=== PATIENT | female | born 1945 | race Caucasian/White ===

== ENCOUNTER 2016-08-17 05:56 | Inpatient (IN) | payer OTHER, MEDICAID ==
[2016-08-15 12:35] LABS: Basophils # (auto) 0 uL; Basophils % (auto) 0.4 % (0.0-2.0); Eosinophils # (auto) 0.2 uL; Eosinophils % (auto) 2.1 % (0.0-7.0); Hemoglobin 12.3 g/dL (12.2-16.2); Lymphocytes # (auto) 1.4 uL; Mean Corpuscular Hemoglobin 29.2 pg (28.0-32.0); Mean Corpuscular Hgb Conc. 32.2 g/dL (32.0-36.0); Mean Corpuscular Volume 90.6 fL (80.0-100.0); Mean Platelet Volume 8.4 fL (7.4-10.4); Monocytes # (auto) 0.2 uL; Monocytes % (auto) 2.3 % (0.0-12.0); Neutrophils # (auto) 6.6 uL; Neutrophils % (auto) 78.2 % (37.0-80.0); Platelet Count (auto) 235 10^3/uL (140-450); Red Cell Distribution Width 14.7 % (11.6-16.0); White Blood Cell 8.4 10^3/uL (4.4-10.8)
[2016-08-15 12:48] LABS: Partial Thromboplastin Time 27.9 sec (22.64-33.71); Prothrombin Time 10.3 sec (9.37-12.3)
[2016-08-15 13:04] LABS: Potassium 4.6 mmol/L (3.5-5.1)
[2016-08-15 13:08] LABS: Albumin 3.3 g/dL (3.4-5.0); BUN/Creatinine Ratio 13.9; Calcium 8.6 mg/dL (8.5-10.1)
[2016-08-15 13:11] LABS: Bilirubin, Total 0.6 mg/dL (0.2-1.0); Total Protein 7.8 g/dL (6.4-8.2)
[~2016-08-17] VITALS: Ht 165.1 cm; Wt 81.4 kg
[~2016-08-17 05:56] MED LIST: ALPR1TAB2 PO; AMLO5TAB2 PO; CYCL1TAB18 PO; GLIP-115 PO; HYDR25TA4 PO; LEVO200T46 PO; LINA5TAB PO; LISI-646 PO; METH2.5T3 PO; PEN400T PO
[2016-08-17] MEDS ORDERED: BUPIVACAINE W/ EPINEPH 0.25% INJ 50ML MDV ONE (06:36)
[2016-08-17] MEDS ORDERED: BUPIVACAINE 0.25% INJ 50ML VIAL ONE (06:36)
[2016-08-17] MEDS ORDERED: GELATIN 1 SPONGE SIZE 100 TOP ONE (06:36)
[2016-08-17] MEDS ORDERED: LIDOCAINE W/ EPINEPHRINE 1 % INJ 30ML ONE (06:36)
[2016-08-17] MEDS ORDERED: GELATIN 1 SPONGE SIZE 50 TOP ONE (06:36)
[2016-08-17] MEDS ORDERED: POVIDONE IODINE 10 % TOPICAL OINT 30GM TOP ONE (06:36)
[2016-08-17] MEDS ORDERED: LIDOCAINE 1% HCL (LOCAL ANESTH.) INJ 20ML MDV ONE (06:36)
[2016-08-17] MEDS ORDERED: PROMETHAZINE HCL 25 MG RECT SUPP PR ONE (08:15)
[2016-08-17] MEDS ORDERED: ONDANSETRON HCL 4 MG/2 ML VIAL IV PRN (12:00)
[2016-08-17] MEDS ORDERED: SOD CHL 0.45% WITH 20MEQ KCL 1,000 ML IV SCH (12:00)
[2016-08-17] MEDS ORDERED: NITROGLYCERIN 0.4 MG SL TAB SL PRN (16:15)
[2016-08-17] MEDS ORDERED: MORPHINE SULF INJ 2 MG/ML SYRINGE 1ML IV PRN (16:15)
[2016-08-17] MEDS ORDERED: DEXTROSE (50%) 50ML SYRG IV PRN (16:30)
[2016-08-17] MEDS ORDERED: PANTOPRAZOLE SODIUM 40 MG/10 ML VIAL IV ONE (16:30)
[2016-08-17] MEDS ORDERED: amLODIPine BESYLATE 5 MG TAB PO ONE (17:00)
[2016-08-17] MEDS ORDERED: LISINOPRIL 10 MG TAB PO ONE (17:00)
[2016-08-17] MEDS: InsuLIN REG 1unit/0.01ml Soln (100units/ml) SC SCH ×2 (17:00→22:00)
[2016-08-17] MEDS: ACCU-CHEK COMFORT CURVE STRIP VI SCH ×2 (17:26→23:01)
[2016-08-17] MEDS: SODIUM CHLORIDE 0.9% 1,000 ML IV SCH (17:56)
[2016-08-17 18:56] VITALS: BP 153/73
[2016-08-17] MEDS: ALPRAZolam 0.5 MG TAB PO PRN (21:29)
[2016-08-17] MEDS: GABAPENTIN 400 MG CAP PO SCH (21:29)
[2016-08-17] MEDS: ATORVASTATIN 20 MG TAB PO SCH (21:29)
[2016-08-17 22:00] VITALS: BP 146/71
[2016-08-17] MEDS ORDERED: GABAPENTIN 300 MG CAP PO SCH (22:00)
[2016-08-18 05:02] VITALS: BP 123/64
[2016-08-18] MEDS: SODIUM CHLORIDE 0.9% 1,000 ML IV SCH ×2 (06:12→17:02)
[2016-08-18 06:23] LABS: Basophils # (auto) 0 uL; Basophils % (auto) 0.6 % (0.0-2.0); Eosinophils # (auto) 0.2 uL; Eosinophils % (auto) 3.3 % (0.0-7.0); Hematocrit 33.8 % (36.0-46.0); Lymphocytes # (auto) 1.9 uL; Lymphocytes % (auto) 26.7 % (10.0-50.0); Mean Corpuscular Hemoglobin 29.3 pg (28.0-32.0); Mean Corpuscular Hgb Conc. 32.5 g/dL (32.0-36.0); Mean Corpuscular Volume 90.1 fL (80.0-100.0); Mean Platelet Volume 8.3 fL (7.4-10.4); Monocytes # (auto) 0.5 uL; Monocytes % (auto) 7.5 % (0.0-12.0); Neutrophils # (auto) 4.3 uL; Neutrophils % (auto) 61.9 % (37.0-80.0); Platelet Count (auto) 207 10^3/uL (140-450); Red Cell Distribution Width 14.9 % (11.6-16.0); White Blood Cell 6.9 10^3/uL (4.4-10.8)
[2016-08-18] MEDS: GABAPENTIN 400 MG CAP PO SCH ×3 (06:35→22:03)
[2016-08-18] MEDS: ACCU-CHEK COMFORT CURVE STRIP VI SCH ×4 (06:37→22:04)
[2016-08-18 06:48] LABS: Albumin 2.9 g/dL (3.4-5.0); BUN/Creatinine Ratio 8.8; Calcium 7.7 mg/dL (8.5-10.1); Potassium 4.3 mmol/L (3.5-5.1)
[2016-08-18] MEDS: InsuLIN REG 1unit/0.01ml Soln (100units/ml) SC SCH ×4 (06:48→22:00)
[2016-08-18 06:59] LABS: Bilirubin, Total 0.5 mg/dL (0.2-1.0); Total Protein 6.4 g/dL (6.4-8.2)
[2016-08-18] MEDS ORDERED: LEVOTHYROXINE SODIUM 100 MCG TAB PO SCH (07:00)
[2016-08-18 08:04] VITALS: BP 105/55
[2016-08-18] MEDS ORDERED: LISINOPRIL 10 MG TAB PO SCH (10:00)
[2016-08-18] MEDS: PANTOPRAZOLE SODIUM 40 MG/10 ML VIAL IV SCH (11:01)
[2016-08-18] MEDS: LEVOTHYROXINE SODIUM 100 MCG TAB PO SCH ×2 (11:02→22:04)
[2016-08-18] MEDS: amLODIPine BESYLATE 5 MG TAB PO SCH (11:03)
[2016-08-18 13:00] VITALS: BP 124/59
[2016-08-18 16:37] VITALS: BP 117/56
[2016-08-18] MEDS: ATORVASTATIN 20 MG TAB PO SCH (22:03)
[2016-08-18 22:04] VITALS: BP 121/57
[2016-08-18] MEDS: ALPRAZolam 0.5 MG TAB PO PRN (22:04)
[2016-08-18] MEDS: HYDROcodone-ACET 5/325MG TAB PO PRN (22:04)
[2016-08-19] MEDS: HYDROcodone-ACET 5/325MG TAB PO PRN (04:32)
[2016-08-19 05:02] VITALS: BP 124/56
[2016-08-19] MEDS: GABAPENTIN 400 MG CAP PO SCH (06:10)
[2016-08-19 06:20] LABS: BUN/Creatinine Ratio 8.8; Calcium 7.3 mg/dL (8.5-10.1); Potassium 4.1 mmol/L (3.5-5.1)
[2016-08-19] MEDS: ACCU-CHEK COMFORT CURVE STRIP VI SCH ×2 (06:36→11:30)
[2016-08-19] MEDS: InsuLIN REG 1unit/0.01ml Soln (100units/ml) SC SCH ×2 (06:36→11:30)
[2016-08-19 09:00] VITALS: BP 121/56
[2016-08-19] MEDS: amLODIPine BESYLATE 5 MG TAB PO SCH (10:00)
[2016-08-19] MEDS: PANTOPRAZOLE SODIUM 40 MG/10 ML VIAL IV SCH (10:35)
[2016-08-19] MEDS: LEVOTHYROXINE SODIUM 100 MCG TAB PO SCH (10:35)
[2016-08-19] MEDS: SODIUM CHLORIDE 0.9% 1,000 ML IV SCH (10:40)
[2016-08-19 11:39] VITALS: BP 121/56
== END 2016-08-19 13:15 | disposition home or self-care (01) | DRG 392 ==
LOC: SUR 05:56 → TELE-CENTR 05:57 → CENTRAL 08-18 21:38
PROVIDERS: ADMIT Surgery; ATTEND Internal Medicine
DX: K29.00 Acute gastritis without bleeding (principal); N17.9 Acute kidney failure, unspecified; E86.0 Dehydration; I73.9 Peripheral vascular disease, unspecified; E03.9 Hypothyroidism, unspecified; N18.3 Chronic kidney disease, stage 3 (moderate); E11.51 Type 2 diabetes mellitus with diabetic peripheral angiopathy without gangrene; M19.90 Unspecified osteoarthritis, unspecified site; Z60.2 Problems related to living alone; E11.22 Type 2 diabetes mellitus with diabetic chronic kidney disease; I12.9 Hypertensive chronic kidney disease with stage 1 through stage 4 chronic kidney disease, or unspecified chronic kidney disease
CPT/HCPCS: 36415; 80048; 80053; 82962; 84443; 85025; 85610; 85730; 86850; 86900; 86901; 87081; C9113; J2001; J3490

== ENCOUNTER 2017-03-02 17:28 | Emergency (ER) | payer BC, MEDICAID ==
[~2017-03-02] VITALS: Ht 165.1 cm; Wt 77.1 kg
[2017-03-02 19:24] VITALS: BP 170/74
[2017-03-02] MEDS ORDERED: IBUPROFEN 600 MG TAB PO ONE ×2 (20:30→20:45)
== END 2017-03-02 20:58 | disposition home or self-care (01) ==
LOC: EDBD 17:28 → ER 17:31
DX: S46.811A Strain of other muscles, fascia and tendons at shoulder and upper arm level, right arm, initial encounter (principal); S70.01XA Contusion of right hip, initial encounter; S80.12XA Contusion of left lower leg, initial encounter; Z79.899 Other long term (current) drug therapy; E11.9 Type 2 diabetes mellitus without complications; I10 Essential (primary) hypertension; V43.52XA Car driver injured in collision with other type car in traffic accident, initial encounter; Y93.89 Activity, other specified; Y92.89 Other specified places as the place of occurrence of the external cause; Y99.8 Other external cause status
CPT/HCPCS: 73030; 73502

== ENCOUNTER 2020-11-09 19:54 | Inpatient (IN) | payer BC, MEDICAID ==
[~2020-11-09] VITALS: Ht 165.1 cm; Wt 81.4 kg
[~2020-11-09 19:54] MED LIST changes: +AMLO-489 PO; -AMLO5TAB2 PO; +CYCL10TA6 PO; -CYCL1TAB18 PO; -GLIP-115 PO; +GLIP5TAB12 PO; +LEVO200T PO; -LEVO200T46 PO; +METH2.5T PO; -METH2.5T3 PO
[2020-11-09] MEDS ORDERED: FUROSEMIDE 100 MG/10ML VIAL IV ONE (20:30)
[2020-11-09 21:05] LABS: Basophils # (auto) 0.1 10 ^3/uL (0-0.2); Basophils % (auto) 0.6 % (0.0-2.0); Eosinophils # (auto) 0 10 ^3/uL (0-0.8); Eosinophils % (auto) 0.3 % (0.0-7.0); Hematocrit 36.5 % (36.0-46.0); Hemoglobin 11.8 g/dL (12.2-16.2); Lymphocytes # (auto) 0.5 10 ^3/uL (0.4-5.4); Lymphocytes % (auto) 3.7 % (10.0-50.0); Mean Corpuscular Hemoglobin 29.1 pg (28.0-32.0); Mean Corpuscular Hgb Conc. 32.2 g/dL (32.0-36.0); Mean Corpuscular Volume 90.3 fL (80.0-100.0); Monocytes # (auto) 0.6 10 ^3/uL (0-1.3); Monocytes % (auto) 4.7 % (0.0-12.0); Neutrophils # (auto) 12.5 10 ^3/uL (1.6-8.6); Neutrophils % (auto) 90.7 % (37.0-80.0); Nucleated Red Blood Cells % 0.1 %; Platelet Count (auto) 176 10^3/uL (140-450); Red Blood Cells 4.05 10^6/uL (4.0-5.20); Red Cell Distribution Width 16.8 % (11.8-14.3); White Blood Cell 13.8 10^3/uL (4.4-10.8)
[2020-11-09 21:26] LABS: Albumin 2.8 g/dL (3.4-5.0); Anion Gap 9 (5-15); Blood Urea Nitrogen 52 mg/dL (7-18); Calcium 7.8 mg/dL (8.5-10.1); Carbon Dioxide 22 mmol/L (21-32); Chloride 110 mmol/L (98-107); Glucose 230 mg/dL (74-106); INR 1.19 (0.9-1.15); Partial Thromboplastin Time 30.3 sec (23.0-31.2); Potassium 4.4 mmol/L (3.5-5.1); Sodium 141 mmol/L (136-145)
[2020-11-09 21:31] LABS: Alanine Aminotransferase 20 U/L (13-56); Alkaline Phosphatase 279 U/L (45-117); Aspartate Aminotransferase 15 U/L (15-37); BUN/Creatinine Ratio 16.7; Bilirubin, Total 1.2 mg/dL (0.2-1.0); GFR African American 19 mL/min; GFR Non-African American 15 mL/min; Total Protein 7.2 g/dL (6.4-8.2)
[2020-11-09] MEDS ORDERED: PIPERACILLIN-TAZO 4.5GM 100 ML IV ONE (22:30)
[2020-11-09] MEDS ORDERED: VANCOMYCIN 1GM/250ML 250 ML IV ONE (22:30)
[2020-11-09 22:57] LABS: Urine Bacteria FEW /hpf (None Seen); Urine Blood Negative /uL (Negative); Urine Hyaline Cast FEW /lpf (0 - 2); Urine Specific Gravity 1.009 (1.001-1.035); Urine WBC 2 /hpf (0 - 5)
[2020-11-10] VITALS (34 sets, daily range): BP systolic 117–158; BP diastolic 44–111
[2020-11-10] MEDS ORDERED: cloNIDine HCL 0.1 MG TAB PO PRN (01:00)
[2020-11-10] MEDS ORDERED: HYDROcodone-ACET 5/325MG TAB PO PRN (01:00)
[2020-11-10] MEDS ORDERED: ACETAMINOPHEN 325 MG TAB PO PRN (01:00)
[2020-11-10] MEDS ORDERED: NITROGLYCERIN 0.4 MG SL TAB SL PRN (01:00)
[2020-11-10] MEDS ORDERED: DEXTROSE (50%) 50ML SYRG IV PRN (01:00)
[2020-11-10] MEDS ORDERED: ALBUTEROL SULF 2.5 MG/0.5ML(0.5%) NEB SOLN NEB PRN (01:00)
[2020-11-10] MEDS ORDERED: ONDANSETRON HCL 4 MG/2 ML VIAL IV PRN (01:00)
[2020-11-10] MEDS ORDERED: TEMAZEPAM 15 MG CAP PO PRN (01:00)
[2020-11-10] MEDS ORDERED: MORPHINE SULF INJ 2 MG/ML SYRINGE 1ML IV PRN (01:00)
[2020-11-10] MEDS ORDERED: ENOXAPARIN SOD 100 MG/1 ML SYRINGE SC ONE (03:00)
[2020-11-10] MEDS ORDERED: FUROSEMIDE 20 MG/2 ML VIAL IV SCH (06:00)
[2020-11-10] MEDS: ACCU-CHEK COMFORT CURVE STRIP VI SCH ×3 (06:17→17:50)
[2020-11-10] MEDS: InsuLIN REG 1unit/0.01ml Soln (100units/ml) SC SCH ×3 (06:17→17:50)
[2020-11-10] MEDS: LEVOTHYROXINE SODIUM 50 MCG TAB PO SCH (07:19)
[2020-11-10] MEDS: amLODIPine BESYLATE 5 MG TAB PO SCH (10:20)
[2020-11-10] MEDS: cefTRIAXone 1GM/50ML D5W 50 ML IV SCH (10:20)
[2020-11-10] MEDS: PANTOPRAZOLE 40 MG TAB PO SCH (10:20)
[2020-11-10] MEDS: AZITHROMYCIN 500MG/ 250ML 250 ML IV SCH (11:00)
[2020-11-10] MEDS: FUROSEMIDE 40 MG/4 ML VIAL IV SCH (16:28)
[2020-11-10] MEDS ORDERED: FAMOTIDINE (10MG/ML) 2ML VL IV SCH (22:00)
[2020-11-10] MEDS: POTASSIUM EFFERVESENT TAB 25 MEQ PO SCH (22:00)
[2020-11-10] MEDS: methylPREDNISolone SOD SUCC 40 MG/ML VL IV SCH (23:53)
[2020-11-11] VITALS (49 sets, daily range): BP systolic 114–176; BP diastolic 43–94
[2020-11-11] MEDS: InsuLIN REG 1unit/0.01ml Soln (100units/ml) SC SCH ×4 (06:00→17:41)
[2020-11-11] MEDS: FUROSEMIDE 40 MG/4 ML VIAL IV SCH ×2 (06:04→17:40)
[2020-11-11] MEDS: ACCU-CHEK COMFORT CURVE STRIP VI SCH ×5 (06:04→23:58)
[2020-11-11] MEDS: methylPREDNISolone SOD SUCC 40 MG/ML VL IV SCH ×4 (06:04→23:58)
[2020-11-11] MEDS: LEVOTHYROXINE SODIUM 50 MCG TAB PO SCH (07:45)
[2020-11-11] MEDS: cefTRIAXone 1GM/50ML D5W 50 ML IV SCH (08:55)
[2020-11-11] MEDS: AZITHROMYCIN 500MG/ 250ML 250 ML IV SCH (09:29)
[2020-11-11] MEDS: PANTOPRAZOLE 40 MG TAB PO SCH (09:46)
[2020-11-11] MEDS: amLODIPine BESYLATE 5 MG TAB PO SCH (09:46)
[2020-11-11 09:47] LABS: Basophils # (auto) 0 10 ^3/uL (0-0.2); Basophils % (auto) 0.2 % (0.0-2.0); Eosinophils # (auto) 0 10 ^3/uL (0-0.8); Hematocrit 35.1 % (36.0-46.0); Hemoglobin 11.3 g/dL (12.2-16.2); Lymphocytes # (auto) 0.3 10 ^3/uL (0.4-5.4); Lymphocytes % (auto) 3.1 % (10.0-50.0); Mean Corpuscular Hemoglobin 28.7 pg (28.0-32.0); Mean Corpuscular Hgb Conc. 32.1 g/dL (32.0-36.0); Mean Corpuscular Volume 89.6 fL (80.0-100.0); Monocytes # (auto) 0.1 10 ^3/uL (0-1.3); Monocytes % (auto) 0.7 % (0.0-12.0); Neutrophils # (auto) 9.4 10 ^3/uL (1.6-8.6); Nucleated Red Blood Cells % 0.2 %; Platelet Count (auto) 186 10^3/uL (140-450); Red Blood Cells 3.92 10^6/uL (4.0-5.20); Red Cell Distribution Width 16.4 % (11.8-14.3); White Blood Cell 9.8 10^3/uL (4.4-10.8)
[2020-11-11] MEDS: POTASSIUM EFFERVESENT TAB 25 MEQ PO SCH ×2 (09:47→21:29)
[2020-11-11 10:03] LABS: Albumin 2.5 g/dL (3.4-5.0); Calcium 8.1 mg/dL (8.5-10.1); Potassium 3.8 mmol/L (3.5-5.1)
[2020-11-11 10:11] LABS: BUN/Creatinine Ratio 19.1; Bilirubin, Total 0.8 mg/dL (0.2-1.0); Total Protein 7.3 g/dL (6.4-8.2)
[2020-11-11 15:35] LABS: Protein, Urine 200.3 mg/dL (0.0-11.9)
[2020-11-11 15:36] LABS: Sodium Urine 94 mmol/L (40-220)
[2020-11-11 15:38] LABS: Creatinine, Urine 40 mg/dL (30.0-125.0)
[2020-11-12] VITALS (47 sets, daily range): BP systolic 127–169; BP diastolic 50–73
[2020-11-12] MEDS: InsuLIN REG 1unit/0.01ml Soln (100units/ml) SC SCH ×4 (00:03→17:40)
[2020-11-12 05:59] LABS: Basophils # (auto) 0 10 ^3/uL (0-0.2); Basophils % (auto) 0.1 % (0.0-2.0); Eosinophils # (auto) 0 10 ^3/uL (0-0.8); Hematocrit 33.7 % (36.0-46.0); Lymphocytes # (auto) 0.5 10 ^3/uL (0.4-5.4); Lymphocytes % (auto) 4.1 % (10.0-50.0); Mean Corpuscular Hemoglobin 28.8 pg (28.0-32.0); Mean Corpuscular Hgb Conc. 32.6 g/dL (32.0-36.0); Mean Corpuscular Volume 88.3 fL (80.0-100.0); Monocytes # (auto) 0.3 10 ^3/uL (0-1.3); Monocytes % (auto) 2.2 % (0.0-12.0); Neutrophils # (auto) 10.5 10 ^3/uL (1.6-8.6); Neutrophils % (auto) 93.6 % (37.0-80.0); Nucleated Red Blood Cells % 0.1 %; Platelet Count (auto) 190 10^3/uL (140-450); Red Blood Cells 3.82 10^6/uL (4.0-5.20); Red Cell Distribution Width 16.3 % (11.8-14.3); White Blood Cell 11.2 10^3/uL (4.4-10.8)
[2020-11-12] MEDS: methylPREDNISolone SOD SUCC 40 MG/ML VL IV SCH ×3 (06:09→18:20)
[2020-11-12] MEDS: FUROSEMIDE 40 MG/4 ML VIAL IV SCH ×2 (06:09→18:21)
[2020-11-12] MEDS: LEVOTHYROXINE SODIUM 50 MCG TAB PO SCH (06:10)
[2020-11-12] MEDS: ACCU-CHEK COMFORT CURVE STRIP VI SCH ×3 (06:10→17:41)
[2020-11-12 06:21] LABS: Albumin 2.6 g/dL (3.4-5.0); Calcium 7.5 mg/dL (8.5-10.1); Potassium 3.7 mmol/L (3.5-5.1)
[2020-11-12 06:26] LABS: BUN/Creatinine Ratio 20.6; Bilirubin, Total 0.8 mg/dL (0.2-1.0); Phosphorus 3.8 mg/dL (2.5-4.90); Total Protein 6.8 g/dL (6.4-8.2)
[2020-11-12] MEDS: cefTRIAXone 1GM/50ML D5W 50 ML IV SCH (09:00)
[2020-11-12] MEDS: AZITHROMYCIN 500MG/ 250ML 250 ML IV SCH (09:55)
[2020-11-12] MEDS: POTASSIUM EFFERVESENT TAB 25 MEQ PO SCH (09:55)
[2020-11-12] MEDS: amLODIPine BESYLATE 5 MG TAB PO SCH (09:56)
[2020-11-12] MEDS: PANTOPRAZOLE 40 MG TAB PO SCH (10:09)
[2020-11-12] MEDS ORDERED: SODIUM CHLORIDE 0.9 % NEB SOLN 3ML NEB ONE (11:02)
[2020-11-12] MEDS ORDERED: FURO1TAB31 PO (13:47)
[2020-11-12] MEDS ORDERED: POTA10TA32 PO (13:47)
[2020-11-12] MEDS ORDERED: ALB5IS NEB (13:47)
[2020-11-12] MEDS ORDERED: APIX2.5T OR (13:49)
[2020-11-12] MEDS ORDERED: DOXY-346 PO (13:49)
[2020-11-12] MEDS ORDERED: APIXABAN 2.5 MG TAB PO SCH (14:00)
== END 2020-11-12 19:50 | disposition hospice, home (50) | DRG 291 ==
LOC: EDBD 19:54 → ER 20:00 → TELE 20:01 → UNDOADMIN 11-10 00:54 → DOU IN ICU 11-10 08:46 → TELE 11-10 08:52 → DOU IN ICU 11-10 08:52 → UNDODISIN 11-12 19:50
PROVIDERS: ADMIT Nurse Practitioner; ATTEND Hospitalist
PROC: 5A09457 Assistance with Respiratory Ventilation, 24-96 Consecutive Hours, Continuous Positive Airway Pressure (ICD-10-PCS; principal; 2020-11-09)
PROC: 5A09357 Assistance with Respiratory Ventilation, Less than 24 Consecutive Hours, Continuous Positive Airway Pressure (ICD-10-PCS; 2020-11-11)
DX: I13.0 Hypertensive heart and chronic kidney disease with heart failure and stage 1 through stage 4 chronic kidney disease, or unspecified chronic kidney disease (principal); I50.43 Acute on chronic combined systolic (congestive) and diastolic (congestive) heart failure; J96.21 Acute and chronic respiratory failure with hypoxia; N17.0 Acute kidney failure with tubular necrosis; J18.9 Pneumonia, unspecified organism; J98.11 Atelectasis; J44.1 Chronic obstructive pulmonary disease with (acute) exacerbation; N18.4 Chronic kidney disease, stage 4 (severe); J44.0 Chronic obstructive pulmonary disease with (acute) lower respiratory infection; Z51.5 Encounter for palliative care; D63.1 Anemia in chronic kidney disease; E03.9 Hypothyroidism, unspecified; E11.22 Type 2 diabetes mellitus with diabetic chronic kidney disease; E11.65 Type 2 diabetes mellitus with hyperglycemia; E66.9 Obesity, unspecified; Z68.28 Body mass index [BMI] 28.0-28.9, adult; I48.91 Unspecified atrial fibrillation; L40.50 Arthropathic psoriasis, unspecified; S29.012A Strain of muscle and tendon of back wall of thorax, initial encounter; S80.12XA Contusion of left lower leg, initial encounter; S70.01XA Contusion of right hip, initial encounter; Z20.822 Contact with and (suspected) exposure to COVID-19; Z79.01 Long term (current) use of anticoagulants; Z79.84 Long term (current) use of oral hypoglycemic drugs; Z79.899 Other long term (current) drug therapy; Z82.49 Family history of ischemic heart disease and other diseases of the circulatory system; Z85.05 Personal history of malignant neoplasm of liver; Z85.118 Personal history of other malignant neoplasm of bronchus and lung; R79.89 Other specified abnormal findings of blood chemistry; D72.829 Elevated white blood cell count, unspecified; N32.89 Other specified disorders of bladder; X58.XXXA Exposure to other specified factors, initial encounter
CPT/HCPCS: 36415; 36600; 71045; 71250; 76775; 80053; 81001; 82306; 82570; 82805; 82962; 83036; 83605; 83880; 83970; 84100; 84156; 84300; 84443; 84484; 85025; 85379; 85610; 85730; 87040; 87081; 87426; 87804; 93005; 93306; 93970; 94640; 94660; 96365; 96372; 96375; 99291; G0378; J0696; J1815; J2543